=== PATIENT | female | born 1965 | race Caucasian/White ===

== ENCOUNTER 2016-07-20 12:11 | Emergency (ER) | payer SELFPAY ==
[2016-07-20] MEDS ORDERED: Ondansetron HCl/PF 4 MG/2 ML Vial ONE (12:38)
[2016-07-20] MEDS ORDERED: Fentanyl 100 MCG/2 ML VIAL ONE (12:39)
--- NOTE | 2016-07-20 13:35 | ERRECORD ---
[facility] EMERGENCY RECORD HPI ANKLE (12:37 SHAN) CHIEF COMPLAINT: Patient presents for evaluation of injury. HISTORIAN: History provided by patient, History provided by patient's family. MECHANISM OF INJURY: Known mechanism, foot became caught in sheets; while going to restroom and fell injuring the left ankle/foot; pain continued. Occurred last pm. EXACERBATED BY: Patient's condition exacerbated by walking. RELIEVED BY: Patient's condition relieved by nothing. ROS (12:39 SHAN) CONSTITUTIONAL: Negative constitutional review of systems. EYES: Negative eye review of systems. ENT: Negative ears, nose, throat review of systems. CARDIOVASCULAR: Negative cardiovascular review of systems. RESPIRATORY: Negative respiratory review of systems. GI: Negative gastrointestinal review of systems. GENITOURINARY FEMALE: Negative genitourinary review of systems. MUSCULOSKELETAL: left ankle and foot pain; more ankle and lower leg. SKIN: Negative skin review of systems. NEUROLOGIC: Negative neurologic review of systems. ENDOCRINE: Negative endocrine review of systems. NOTES: All systems reviewed, negative except as described above. PAST MEDICAL HISTORY (12:24 BDON) MEDICAL HISTORY: Flu vaccine not up to date, Tetanus immunization up to date, Past medical history includes gynecologic history, ovarian cysts, uterine fibroid, Past medical history includes history of hypertension, which has been treated, Past medical history includes musculoskeletal disorder, osteoarthritis. FEMALE SURGICAL HISTORY: bilateral knee scope, left thumb,, Surgical history of hysterectomy, Surgical history of orthopedic surgery, right wrist X 9. PSYCHIATRIC HISTORY: Psychiatric history includes, anxiety. SOCIAL HISTORY: Patient denies alcohol use, Patient denies drug use, Patient currently uses tobacco, smokes cigarettes, Lives at home, with family. KNOWN ALLERGIES Iodinated Contrast Media - IV Dye CURRENT MEDICATIONS Norvasc: TABLET : Strength - 10 mg : ORAL Patient Dose: once a day. (12:25 BDON) Lasix: &a-1R&a+25V*p+0X*o1328T*c202B*c15G*c2P*p-0X&a-25V&a+1R Name: Isabel Bonds : 1965 F51 MedRec: [id number] AcctNum: [id number] Prepared: MonJul 20, 2016 18:25 by Interface Page 1 of 3 pMD [facility] EMERGENCY RECORD TABLET : Strength - 20 mg : ORAL Patient Dose: 2 times a day. (12:25 BDON) Xanax: TABLET : Strength - 2 mg : ORAL Patient Dose: 3 times a day. (12:26 BDON) VITAL SIGNS VITAL SIGNS: BP: 171/96, Pulse: 978, Resp: 17, Temp: 97.8 (Oral), Pain: 10, O2 sat: 96, Time: 07/20/2016 12:16. (12:16 BDON) BP: 138/87, Pulse: 95, Resp: 16, Pain: 6, O2 sat: 7, Time: 07/20/2016 13:24. (13:24 JPAR) PHYSICAL EXAM (12:39 SHAN) CONSTITUTIONAL: Patient afebrile, Pulse normal, Blood pressure normal, Respiratory rate normal, Patient appears non toxic, Patient appears pain free, Patient alert and oriented to person, place and time. HEAD: Head exam included findings of head atraumatic, normocephalic. EYES: Eye exam normal, Eye exam included findings of eyelids normal to inspection, Pupils equally round and reactive to light, Extraocular muscles intact. ENT: ENT exam normal, Pharynx exam normal, Uvula exam normal, Tonsil exam normal. NECK: Neck exam normal, Neck exam included findings of normal range of motion, Trachea midline. RESPIRATORY CHEST: Respiratory and chest exam normal, Chest exam included findings of chest movement symmetrical, Chest expansion equal, Percussion normal. CARDIOVASCULAR: Cardiovascular assessment normal, Cardiovascular exam included findings of heart rate regular rate and rhythm, Heart sounds normal. ABDOMEN FEMALE: Abdominal exam normal, Abdominal exam included findings of abdomen nontender, Bowel sounds normal. BACK: Back exam normal. UPPER EXTREMITY: Upper extremity exam normal, Upper extremity exam included findings of inspection normal, Range of motion normal. LOWER EXTREMITY: left ankle swollen and tender; moderate pain. NEURO: Neuro exam normal. SKIN: Skin exam normal. PSYCHIATRIC: Psychiatric exam normal, Psychiatric exam included findings of patient oriented to person place and time, Normal affect, Judgment normal, Insight normal. MEDICATION ADMINISTRATION SUMMARY Drug Name: fentaNYL (PF) injection, Dose Ordered: 100 mcg, Route: Intramuscular, Status: Given, Time: 12:53 07/20/2016, Drug Name: Zofran (PF), Dose Ordered: 8 mg, Route: Intramuscular, &a-1R&a+25V*p+0X*k1151O*c202B*c15G*c2P*p-0X&a-25V&a+1R Name: Isabel Bonds : 1965 F51 MedRec: [id number] AcctNum: [id number] Prepared: MonJul 20, 2016 18:25 by Interface Page 2 of 3 pMD [facility] EMERGENCY RECORD Status: Given, Time: 12:52 07/20/2016, Detailed record available in Medication Service section. DOCTOR NOTES (13:23 SHAN) TEXT: Spiral fracture of left tibia noted; posterior splint placed. Ortho referral required and discussed with patient. DATA REVIEWED: Xray data reviewed. PROBLEM LIST No recorded problems DIAGNOSIS (13:27 MARIBEL) FINAL: PRIMARY: closed spiral fracture of left distal fibula. PRESCRIPTION acetaminophen-codeine: TABLET : 300 mg-30 mg : ORAL : Quantity: 2 Unit: tab(s) Route: ORAL Schedule: every 4 hours prn Dispense: 50 May substitute. Refills: No Refills . (13:26 SHAN) NOTES: No Refills. (13:26 SHAN) Zofran ODT: TABLET,DISINTEGRATING : 4 mg : ORAL : Quantity: 1 Unit: tab(s) Route: ORAL Schedule: every 4 hours prn Dispense: 20 Unit: tab(s) May substitute. Refills: No Refills . (13:37 MARIBEL) NOTES: if needed for nausea No Refills. (13:37 SHAN) DISPOSITION PATIENT: Disposition Type: Discharge. (13:27 SHAN) Disposition: *Discharge Home. (13:57 BDON) Patient left the department. (13:58 BDON) Reddy: BOBY=JANEL Toro, Anai GARCIA=JANEL Don, Cameron LÓPEZ=MD Claudette, Robert &a-1R&a+25V*p+0X*f9111B*c202B*c15G*c2P*p-0X&a-25V&a+1R Name: Isabel Bonds : 1965 F51 MedRec: [id number] AcctNum: [id number] Prepared: Hitesh Jul 20, 2016 18:25 by Interface Page 3 of 3 pMD MTDD
--- NOTE | 2016-07-20 13:42 | PICIS ---
[facility] EMERGENCY RECORD TRIAGE (MonJul 20, 2016 12:18 BDON) TRIAGE NOTES: Left ankle and tib fib area, injury getting out of bed, wrapped up in sheets and fell to floor last night. (MonJul 20, 2016 12:18 BDON) PATIENT: NAME: Isabel Bonds, AGE: 51, GENDER: female, : [facility] 1965, TIME OF GREET: MonJul 20, 2016 12:12, PREFERRED LANGUAGE: Tongan, ETHNICITY: Not or , ECODE BILLING MAP: [facility], SSN: [id number], Zip Code: [address], KG WEIGHT: 99.79, PHONE: , , , PERSON ID: [id number], PCP: none. (MonJul 20, 2016 12:18 BDON) COMPLAINT: LEFT ANKLE AND CALF INJURY. (MonJul 20, 2016 12:18 BDON) ADMISSION: URGENCY: 4 Non Urgent, ADMISSION SOURCE: Home, TRANSPORT: Walk-in, BED: TRIAGE. (MonJul 20, 2016 12:18 BDON) ASSESSMENT: Assessment: Fell after getting wrapped up in sheets, left lower leg and ankle pain, Symptoms began yesterday. (12:24 BDON) PAIN: Patient complains of pain described as. (12:24 BDON) LMP: LMP: Hysterectomy. (12:24 BDON) TREATMENTS IN PROGRESS: Treatments given Prehospital: norco 1100. (12:24 BDON) PROVIDERS: TRIAGE NURSE: Anai Toro RN. (MonJul 20, 2016 12:18 BDON) VITAL SIGNS: BP 171/96, Pulse 978, Resp 17, Temp 97.8, (Oral), Pain 10, O2 Sat 96, Time 07/20/2016 12:16. (12:16 BDON) KNOWN ALLERGIES Iodinated Contrast Media - IV Dye CURRENT MEDICATIONS Norvasc: TABLET : Strength - 10 mg : ORAL Patient Dose: once a day. (12:25 BDON) Lasix: TABLET : Strength - 20 mg : ORAL Patient Dose: 2 times a day. (12:25 BDON) Xanax: TABLET : Strength - 2 mg : ORAL Patient Dose: 3 times a day. (12:26 BDON) VITAL SIGNS VITAL SIGNS: BP: 171/96, Pulse: 978, Resp: 17, Temp: 97.8 (Oral), Pain: 10, O2 sat: 96, Time: 07/20/2016 12:16. (12:16 BDON) BP: 138/87, Pulse: 95, Resp: 16, Pain: 6, O2 sat: 7, Time: 07/20/2016 13:24. (13:24 JPAR) NURSING ASSESSMENT: EXTREMITY LOWER (12:40 BDON) CONSTITUTIONAL: Patient arrives, via hospital wheelchair, History obtained from patient, Patient appears, in distress due to &a-1R&a+25V*p+0X*m2918F*c202B*c15G*c2P*p-0X&a-25V&a+1R Name: Isabel Bonds : 1965 F51 MedRec: [id number] AcctNum: [id number] Prepared: MonJul 20, 2016 18:32 by Interface Page 1 of 6 pMD [facility] EMERGENCY RECORD pain, Patient cooperative, Patient alert, Oriented to person, place and time, Skin warm, Skin dry, Skin normal in color, dry heaving with nausea. PAIN: to the left lower leg. LEFT LOWER EXTREMITY: Skin temperature warm, Distal sensation intact, Muscle tone normal, Inspection findings include signs of trauma, to left lower leg and ankle, Inspection findings include swelling. SAFETY: Cart/Stretcher in lowest position, Hospital ID band on, Patient in view of the nursing station. NURSING PROCEDURE: DISCHARGE NOTE (13:49 BDON) DISCHARGE: Patient discharged to home, in a wheelchair, family driving, Summary of Care printed/ provided, Patient requested and was provided an electronic copy of Discharge Instructions, Transition record given to patient, Discharge instructions given to patient, Discharge instructions given to mother. NURSING PROCEDURE: SPLINTING (13:12 JPAR) PATIENT IDENTIFIER: Patient actively involved in identification process, Patient's identity verified by patient stating name, Patient's identity verified by patient stating date, Patient's identity verified by hospital ID bracelet, Patient's identity verified by family member. SPLINTING: Splinting indicated for fracture care, Splinting indicated for pain control, Splint applied to, the left lower leg, 3 inch maura wrap applied, short leg posterior mold applied, Immobilized in position of comfort, Crutches given with instructions, using adult crutches. FOLLOW-UP: After procedure, patient returned demonstration of use of walking aid, After procedure, capillary refill less than 2 seconds, After procedure, distal circulation intact, After procedure, distal motor function intact, After procedure, distal sensation intact, After procedure, distal pulses present. SAFETY: Side rails up, Cart/Stretcher in lowest position, Family at bedside, Call light within reach, Hospital ID band on. ORDER DETAILS Order Name: crutches, Status: Done, Time: 13:33 07/20/2016, User: JOSE, - Ordered for: MD Wilkins Stanley, - Entered by: MD Wilkins Stanley - [facility] Jul 20, 2016 13:28, - Quantity: 1, Order Name: XR Ankle Lt 3 View STANDARD, Status: Canceled, Time: 12:58 07/20/2016, User: System, - Ordered for: MD Wilkins Stanley, - Entered by: JANEL Toro Bettye - [facility] Jul 20, 2016 12:20, - Quantity: 1, Order Name: XR Foot Lt 3 View STANDARD, Status: Active, Time: 12:30 07/20/2016, User: BOBY, &a-1R&a+25V*p+0X*f0309F*c202B*c15G*c2P*p-0X&a-25V&a+1R Name: Isabel Bonds : 1965 F51 MedRec: [id number] AcctNum: [id number] Prepared: MonJul 20, 2016 18:32 by Interface Page 2 of 6 pMD [facility] EMERGENCY RECORD - Ordered for: MD Wilkins Stanley, - Entered by: JANEL Toro Bettye [facility] Jul 20, 2016 12:30, - Quantity: 1, Order Name: XR Tib Fib Lt Leg 2 View, Status: Active, Time: 12:20 07/20/2016, User: BOBY, - Ordered for: MD Wilkins Stanley, - Entered by: JANEL Toro Bettye - MonJul 20, 2016 12:20, - Quantity: 1. MEDICATION ADMINISTRATION SUMMARY Drug Name: fentaNYL (PF) injection, Dose Ordered: 100 mcg, Route: Intramuscular, Status: Given, Time: 12:53 07/20/2016, Drug Name: Zofran (PF), Dose Ordered: 8 mg, Route: Intramuscular, Status: Given, Time: 12:52 07/20/2016, Detailed record available in Medication Service section. MEDICATION SERVICE fentaNYL (PF) injection: Order: fentaNYL (PF) injection (fentanyl citrate/preservative free) - Dose: 100 mcg : Intramuscular Schedule: Now Ordered by: Robert Wilkins MD Entered by: Robert Wilkins MD MonJul 20, 2016 12:36 Documented as given by: Anai Toro RN MonJul 20, 2016 12:53 Patient, Medication, Dose, Route and Time verified prior to administration. IM medication, Medication administered to left thigh, Patient in position of comfort, Cart in lowest position, Family at bedside. Zofran (PF): Order: Zofran (PF) (ondansetron HCl/preservative free) - Dose: 8 mg : Intramuscular Schedule: Now Ordered by: Robert Wilkins MD Entered by: Robert Wilkins MD MonJul 20, 2016 12:37 Documented as given by: Anai Toro RN MonJul 20, 2016 12:52 Patient, Medication, Dose, Route and Time verified prior to administration. Medication administered to right thigh, Correct patient, time, route, dose and medication confirmed prior to administration, Patient advised of actions and side-effects prior to administration, Allergies confirmed and medications reviewed prior to administration, Patient in position of comfort, Cart in lowest position, Family at bedside. HPI ANKLE (12:37 SHAN) CHIEF COMPLAINT: Patient presents for evaluation of injury. HISTORIAN: History provided by patient, History provided by patient's family. MECHANISM OF INJURY: Known mechanism, foot became caught in sheets; while going to restroom and fell injuring the left ankle/foot; pain continued. &a-1R&a+25V*p+0X*s9239L*c202B*c15G*c2P*p-0X&a-25V&a+1R Name: Isabel Bonds : 1965 F51 MedRec: [id number] AcctNum: [id number] Prepared: MonJul 20, 2016 18:32 by Interface Page 3 of 6 pMD [facility] EMERGENCY RECORD Occurred last pm. EXACERBATED BY: Patient's condition exacerbated by walking. RELIEVED BY: Patient's condition relieved by nothing. ROS (12:39 SHAN) CONSTITUTIONAL: Negative constitutional review of systems. EYES: Negative eye review of systems. ENT: Negative ears, nose, throat review of systems. CARDIOVASCULAR: Negative cardiovascular review of systems. RESPIRATORY: Negative respiratory review of systems. GI: Negative gastrointestinal review of systems. GENITOURINARY FEMALE: Negative genitourinary review of systems. MUSCULOSKELETAL: left ankle and foot pain; more ankle and lower leg. SKIN: Negative skin review of systems. NEUROLOGIC: Negative neurologic review of systems. ENDOCRINE: Negative endocrine review of systems. NOTES: All systems reviewed, negative except as described above. PAST MEDICAL HISTORY (12:24 BDON) MEDICAL HISTORY: Flu vaccine not up to date, Tetanus immunization up to date, Past medical history includes gynecologic history, ovarian cysts, uterine fibroid, Past medical history includes history of hypertension, which has been treated, Past medical history includes musculoskeletal disorder, osteoarthritis. FEMALE SURGICAL HISTORY: bilateral knee scope, left thumb,, Surgical history of hysterectomy, Surgical history of orthopedic surgery, right wrist X 9. PSYCHIATRIC HISTORY: Psychiatric history includes, anxiety. SOCIAL HISTORY: Patient denies alcohol use, Patient denies drug use, Patient currently uses tobacco, smokes cigarettes, Lives at home, with family. PHYSICAL EXAM (12:39 SHAN) CONSTITUTIONAL: Patient afebrile, Pulse normal, Blood pressure normal, Respiratory rate normal, Patient appears non toxic, Patient appears pain free, Patient alert and oriented to person, place and time. HEAD: Head exam included findings of head atraumatic, normocephalic. EYES: Eye exam normal, Eye exam included findings of eyelids normal to inspection, Pupils equally round and reactive to light, Extraocular muscles intact. ENT: ENT exam normal, Pharynx exam normal, Uvula exam normal, Tonsil exam normal. NECK: Neck exam normal, Neck exam included findings of normal range of motion, Trachea midline. &a-1R&a+25V*p+0X*n1889B*c202B*c15G*c2P*p-0X&a-25V&a+1R Name: Isabel Bonds : 1965 F51 MedRec: [id number] AcctNum: [id number] Prepared: MonJul 20, 2016 18:32 by Interface Page 4 of 6 pMD [facility] EMERGENCY RECORD RESPIRATORY CHEST: Respiratory and chest exam normal, Chest exam included findings of chest movement symmetrical, Chest expansion equal, Percussion normal. CARDIOVASCULAR: Cardiovascular assessment normal, Cardiovascular exam included findings of heart rate regular rate and rhythm, Heart sounds normal. ABDOMEN FEMALE: Abdominal exam normal, Abdominal exam included findings of abdomen nontender, Bowel sounds normal. BACK: Back exam normal. UPPER EXTREMITY: Upper extremity exam normal, Upper extremity exam included findings of inspection normal, Range of motion normal. LOWER EXTREMITY: left ankle swollen and tender; moderate pain. NEURO: Neuro exam normal. SKIN: Skin exam normal. PSYCHIATRIC: Psychiatric exam normal, Psychiatric exam included findings of patient oriented to person place and time, Normal affect, Judgment normal, Insight normal. EVENTS TRANSFER: Triage to Emergency Triage. (12:18 BDON) Emergency Triage to Emergency Room -05. (12:20 BDON) Removed from Emergency Emergency Room -05. (13:58 BDON) DOCTOR NOTES (13:23 SHAN) TEXT: Spiral fracture of left tibia noted; posterior splint placed. Ortho referral required and discussed with patient. DATA REVIEWED: Xray data reviewed. PROBLEM LIST No recorded problems DIAGNOSIS (13:27 SHAN) FINAL: PRIMARY: closed spiral fracture of left distal fibula. DISPOSITION PATIENT: Disposition Type: Discharge. (13:27 SHAN) Disposition: *Discharge Home. (13:57 BDON) Patient left the department. (13:58 BDON) INSTRUCTION (13:32 SHAN) DISCHARGE: ANKLE FRACTURE (DISTAL FIBULA), CLOSED. FOLLOWUP: MD Artur, Sumit, Orthopedics, [address], [address], [facility] [address], . SPECIAL: 1. No weight bearing 2. Call Dr. Sumit Siddiqui; orthopedic surgeon, and set up apt soon; spiral fracture of left distal fibula 3. keep splint on 4. use the crutches when up &a-1R&a+25V*p+0X*f8830L*c202B*c15G*c2P*p-0X&a-25V&a+1R Name: Isabel Bonds : 1965 F51 MedRec: [id number] AcctNum: [id number] Prepared: MonJul 20, 2016 18:32 by Interface Page 5 of 6 pMD [facility] EMERGENCY RECORD 5. keep the leg elevated. PRESCRIPTION acetaminophen-codeine: TABLET : 300 mg-30 mg : ORAL : Quantity: 2 Unit: tab(s) Route: ORAL Schedule: every 4 hours prn Dispense: 50 May substitute. Refills: No Refills . (13:26 SHAN) NOTES: No Refills. (13:26 SHAN) Zofran ODT: TABLET,DISINTEGRATING : 4 mg : ORAL : Quantity: 1 Unit: tab(s) Route: ORAL Schedule: every 4 hours prn Dispense: 20 Unit: tab(s) May substitute. Refills: No Refills . (13:37 SHAN) NOTES: if needed for nausea No Refills. (13:37 SHAN) IMAGING GREENSHEET: Image captured from scanner. (13:14 JPAR) *DISCHARGE INSTRUCTIONS RECEIPT: Image captured from scanner. (13:56 BDON) *SUPPLY CHARGE SHEET: Image captured from scanner. (13:56 BDON) ADMIN DIGITAL SIGNATURE: MD Wilkins Stanley. (13:28 MARIBEL) JANEL Toro Bettye. (13:57 BDON) MD Wilkins Stanley. (18:20 MARIBEL) Reddy: BDMAITE=JANEL Toro Bettye JPAR=JANEL Don, Cameron SHAN=MD Wilkins Stanley &a-1R&a+25V*p+0X*x8493P*c202B*c15G*c2P*p-0X&a-25V&a+1R Name: Isabel Bonds : 1965 F51 MedRec: [id number] AcctNum: [id number] Prepared: MonJul 20, 2016 18:32 by Interface Page 6 of 6 pMD MTDD
--- NOTE | 2016-07-20 14:25 | RAD ---
TWO VIEWS OF THE LEFT TIBIA AND FIBULA: COMPARISON: None. HISTORY: Fall with left leg pain. FINDINGS: Two views of the left tibia/fibula show a spiral fracture of the distal fibula. Overlying soft tiss ue swelling is seen. No tibial fracture is seen. No dislocation is present. IMPRESSION: Distal fibula fracture. POS: [facility]
--- NOTE | 2016-07-20 14:27 | RAD ---
THREE VIEWS OF THE LEFT FOOT: INDICATION: Followup left foot pain. FINDINGS: There is metallic ornamentation seen about the 3rd digit of the left foot. This slightly limits oumou ge detail. No definite acute fracture or subluxation is seen. Enthesopathic change is seen off of the posterio r aspect of the calcaneus. IMPRESSION: No acute finding or subluxation demonstrated. POS: [facility]
== END 2016-07-20 13:49 | disposition home or self-care (01) ==
LOC: NAV ERS 12:11
DX: S82.832A Other fracture of upper and lower end of left fibula, initial encounter for closed fracture (principal); I10 Essential (primary) hypertension; F17.210 Nicotine dependence, cigarettes, uncomplicated; W23.0XXA Caught, crushed, jammed, or pinched between moving objects, initial encounter
CPT/HCPCS: 96372; J2405; J3010